=== PATIENT | female | born 1945 ===

== ENCOUNTER 2024-12-27 05:51 | Inpatient (IN) | payer MEDICARE, OTHER, SELFPAY ==
--- NOTE | 2024-12-13 13:28 | CM ---
Addendum entered by Cassidy Zhang RN 12/17/24 10:33:
CM received call from patient to confirm that she will have home PT through the weekend after her surgery. CM confirmed that patient will have PT visits from [facility] through the weekend.
CM updated [facility] Admission RN with patient's questions. CM will remain available as needed.
Addendum entered by Cassidy Zhang RN 12/13/24 13:33:
Home Visiting PT
Ericka Marquis
[phone]
Original Note:
CM reviewed medical records. CM spoke with patient via live telephone. CM confirmed demographics. Patient lives alone. She endorses that she has no family in the area. She stated that her friend would be helping with transportation and she will
have that friend and other friend stay with her after surgery. Patient has a cane and walker.
Patient would be agreeable to [facility]. She plans to not go to outpatient PT, but hire a private PT to visit in the home after [facility] is off service. Patient stated she will unable to drive.
Patient is active with her PCP. Patient will use [facility] on [address]
CM updated Orth PA with discharge plan
[2024-12-14 14:13] VITALS: BMI 21.3
[2024-12-14 14:35] LABS: Hematocrit 38.2 % (37.0-47.0); Hemoglobin 13.1 g/dL (12.0-16.0); Mean Corp Hgb Conc. 34.3 g/dL (33.0-37.0); Mean Corpuscular Volume 90.3 fL (81.0-99.0); Mean Platelet Volume 10.2 fL (7.4-10.4); Platelet Count 353 10^3/uL (130-400); Red Blood Cell Count 4.23 10^6/uL (4.20-5.40); Red Cell Dist. Width 12.7 % (11.5-14.5); White Blood Cell Count 11.9 10^3/uL (4.8-10.8)
[2024-12-14 14:59] LABS: ALT (SGPT) 15 U/L (0-35); AST (SGOT) 22 U/L (14-36); Alkaline Phosphatase 60 U/L (38-126); Blood Urea Nitrogen 23 mg/dl (7-17); Calcium 9.5 mg/dl (8.4-10.2); Carbon Dioxide 26 mmol/L (22-30); Chloride 101 mmol/L (98-107); Estimated Creatinine Clearance 52 ml/min; Glucose 118 mg/dl (70-99); Potassium 4.5 mmol/L (3.5-5.1); Sodium 135 mmol/L (135-145); Total Bilirubin 0.7 mg/dl (0.2-1.3); Total Protein 7.3 g/dl (6.3-8.2); eGFR > 60.00
[2024-12-14 17:29] VITALS: BMI 21.3
[2024-12-15 10:12] LABS: Glycohemoglobin (HgbA1c) 6.5 % (4.0-5.6)
--- NOTE | 2024-12-17 10:56 | VNURNOTE ---
Chart reviewed. Rec'ed info from surg coordinator that patient is requesting [facility] after surgery 12/27. Referral placed in [facility]. Will continue to monitor hospitalization and final DC dispo plans post-op. Will meet with pt after surgery.
[2024-12-27] VITALS (15 sets, daily range): BP systolic 117–175; BP diastolic 45–82; PULSE 99
[2024-12-27 07:16] LABS: Glucose - Point of Care 119 mg/dl (70-99)
[2024-12-27] MEDS: MOBIC 15 MG PO (07:16)
[2024-12-27] MEDS: TYLENOL 650 MG PO ×4 (07:16→19:12)
[2024-12-27] MEDS: NORMOSOL-R/PLASMALYTE-A 1000 IV ×2 (07:16→16:45)
--- NOTE | 2024-12-27 08:30 | W.PN.UPDATE ---
Update Note
Progress Note Update
L knee OA s/p L TKA w/ Dr Cardozo 12/27/24
DVT prophylaxis - ASA, b/l venous foot pumps
HTN - + parameters - monitor BP
NIDDM, A1c 6.5 - monitor BS
- Resume Metformin
- Add SSI AC, low dose Lantus to accomodate for potential BS elevations d/t surgical stress, IV steroids in OR
- Would benefit from Cefadroxil upon d/c
GERD - continue PPI therapy
Chronic constipation - continue home Miralax w/ bowel regimen of Colace and Senna
- Adequate hydration, the minimization of opioids, and early mobility as tolerated were all discussed alyssa-op
Left hip fracture, status post left hip hemiarthroplasty 2021
Colon polyps
Diverticulosis
Fatty liver disease
Vertigo
Scoliosis
Thyroid nodules
Overactive bladder
Melanoma in situ, status post excision x2
Osteoporosis
Mild leukocytosis, asymptomatic
Pt will need home PT/VN
[2024-12-27 10:08] LABS: Glucose - Point of Care 123 mg/dl (70-99)
[2024-12-27] MEDS: NOVOLOG FLEXPEN-MODERATE RESISTANCE SC (12:30)
[2024-12-27] MEDS: PROTONIX 20 MG PO ×2 (12:36→19:12)
[2024-12-27] MEDS: MIRALAX 17 GRAMS PO (12:36)
[2024-12-27] MEDS: GLUCOPHAGE 500 MG PO (12:36)
[2024-12-27] MEDS: ROXICODONE 5 MG PO ×3 (12:40→20:58)
--- NOTE | 2024-12-27 12:53 | W.DS.TRANS ---
DC Summary - Sample Box Maker
-
Discharge Instructions:
Sleep Apnea Risk Low
Discharge Diagnosis/Procedures L knee OA s/p L TKA w/ Dr Cardozo 12/27/24
Diet Diabetic, Carb Controlled
Additional Diets Adequate hydration, minimize opioids, and wear
TEDs stockings to prevent low blood pressure/
dizziness.
Activity As tolerated,With Walker
Driving Restrictions Not until seen by your Dr
Bathing Restrictions OK to Shower
Other Services PT,VN
Wound Care Dressing to be removed 1 week post-surgery.
[place] to be removed at 2 week follow-up with
surgeon's office.
Instructions:
Stand-Alone Forms: Total Hip/Knee Replacement D/C
Changes to Home Medications: Yes
Discharge Medications:
DC Medications w/original date entered in [employer]
L.acid,brev,bulg,casei,parac,plan,saliv-B.anim 20 billion cell capsule (Probiotic-10) 1 cap PO DAILY 12/13/24
calcium 600 mg (as carbonate)-vit D3 20 mcg (800 unit) chewable tablet (Caltrate plus D) 1 tab PO BID 12/13/24
mecobalamin (vitamin B12) 1,000 mcg chewable tablet (B12 Active) 1,000 mcg PO DAILY 12/13/24
metformin 500 mg tablet 500 mg PO DAILY 12/13/24
minoxidil 5 % topical foam (Rogaine) 1 ea topical QPM 12/13/24
omeprazole 20 mg tablet,delayed release 20 mg PO BID 12/13/24
polyethylene glycol 3350 17 gram oral powder packet (Miralax) 17 g PO DAILY 12/13/24
mupirocin 2 % topical ointment 1 applic intranasal BID #1 tube 12/14/24
doxycycline monohydrate 100 mg capsule 100 mg PO BID #14 caps 12/26/24
gabapentin 300 mg capsule 300 mg PO HS neuropathic pain/sleep #10 caps 12/26/24
meloxicam 15 mg tablet 15 mg PO DAILY Anti-inflammatory #14 tabs 12/26/24
ondansetron HCl 4 mg tablet 4 mg PO Q6H PRN nausea and vomiting #30 tabs 12/26/24
oxycodone 5 mg tablet 5 - 10 mg (1 - 2 x 5 mg) PO Q6H PRN moderate-severe pain #30 tabs 12/26/24
acetaminophen 500 mg tablet (Tylenol Extra Strength) 1,000 mg (2 x 500 mg) PO Q6H #60 tabs 12/27/24
amlodipine 5 mg tablet 7.5 mg (1.5 x 5 mg) PO DAILY #1 tab 12/27/24
aspirin 325 mg tablet 325 mg PO DAILY #30 tabs 12/27/24
docusate sodium 100 mg capsule 100 mg PO BID #30 caps 12/27/24
sennosides 8.6 mg tablet (Magrret-aguilar) 17.2 mg (2 x 8.6 mg) PO BID #30 tabs 12/27/24
spironolactone 25 mg tablet 25 mg PO DAILY #1 tab 12/27/24
Home Medication Changes
doxycycline monohydrate 100 mg capsule 100 mg PO BID #14 caps 12/26/24
gabapentin 300 mg capsule 300 mg PO HS neuropathic pain/sleep #10 caps 12/26/24
meloxicam 15 mg tablet 15 mg PO DAILY Anti-inflammatory #14 tabs 12/26/24
ondansetron HCl 4 mg tablet 4 mg PO Q6H PRN nausea and vomiting #30 tabs 12/26/24
oxycodone 5 mg tablet 5 - 10 mg (1 - 2 x 5 mg) PO Q6H PRN moderate-severe pain #30 tabs 12/26/24
acetaminophen 500 mg tablet (Tylenol Extra Strength) 1,000 mg (2 x 500 mg) PO Q6H #60 tabs 12/27/24
aspirin 325 mg tablet 325 mg PO DAILY #30 tabs 12/27/24
docusate sodium 100 mg capsule 100 mg PO BID #30 caps 12/27/24
sennosides 8.6 mg tablet (Margret-aguilar) 17.2 mg (2 x 8.6 mg) PO BID #30 tabs 12/27/24
Pending Results: No
[2024-12-27] MEDS: VITAMIN B-12 1000 MCG PO (13:28)
--- NOTE | 2024-12-27 15:05 | W.PN.UPDATE ---
Update Note
Progress Note Update
Patient seen and examined. VSS. OOB and in a chair. Pulm: nonlabored. CV: regular. Abd: benign. Ext: Dressing CDI. NVI distally. Calf soft. Postop xrays as expected. ASA for DVT prophylaxis. Plan for discharge home tomorrow.
--- NOTE | 2024-12-27 15:44 | VNURNOTE ---
Home Health Liaison met with patient at bedside to discuss [facility] nurse/therapy, visits, schedule and homebound status. Patient is agreeable and understands that visits at home will be 2-3 x per week to assess and teach medical management. Patient is
aware that [facility] will contact them for start of care in 1-2 days after discharge from .
[facility] referral accepted in [facility].
[2024-12-27 17:07] LABS: Glucose - Point of Care 150 mg/dl (70-99)
[2024-12-27] MEDS: NOVOLOG FLEXPEN-MODERATE RESISTANCE 1 UNITS SC (17:08)
[2024-12-27] MEDS: ASPIRIN 325 MG PO (17:08)
[2024-12-27] MEDS: ANCEF 5 IV (17:50)
[2024-12-27] MEDS: COLACE 100 MG PO (19:12)
[2024-12-27] MEDS: BACTROBAN 2% OINTMENT 1 APPLIC NASAL (19:12)
[2024-12-27] MEDS: SENOKOT 17.2 MG PO (19:12)
[2024-12-27] MEDS: NEURONTIN 300 MG PO (20:57)
[2024-12-27] MEDS: LANTUS 0.05 UNITS SC (20:58)
[2024-12-27 21:09] LABS: Glucose - Point of Care 202 mg/dl (70-99)
[2024-12-28] MEDS: TYLENOL 650 MG PO ×3 (00:51→09:35)
[2024-12-28] MEDS: ROXICODONE 5 MG PO (00:58)
[2024-12-28] MEDS: ANCEF 5 IV (02:26)
[2024-12-28 03:00] VITALS: BP 119/60
[2024-12-28] MEDS: ROXICODONE 10 MG PO ×2 (05:38→09:38)
[2024-12-28 07:04] LABS: Glucose - Point of Care 124 mg/dl (70-99)
[2024-12-28 07:05] VITALS: BP 127/62
[2024-12-28] MEDS: NOVOLOG FLEXPEN-MODERATE RESISTANCE SC (07:37)
[2024-12-28] MEDS: PROTONIX 20 MG PO (07:39)
[2024-12-28] MEDS: VITAMIN B-12 1000 MCG PO (07:39)
[2024-12-28] MEDS: VISBIOME 1 CAP PO (07:40)
[2024-12-28] MEDS: GLUCOPHAGE 500 MG PO (07:40)
[2024-12-28] MEDS: SENOKOT 17.2 MG PO (07:40)
[2024-12-28] MEDS: COLACE 100 MG PO (07:40)
[2024-12-28] MEDS: MOBIC 15 MG PO (07:40)
[2024-12-28] MEDS: MIRALAX 17 GRAMS PO (07:40)
[2024-12-28] MEDS: BACTROBAN 2% OINTMENT 1 APPLIC NASAL (07:41)
[2024-12-28] MEDS: ASPIRIN 325 MG PO (07:47)
--- NOTE | 2024-12-28 07:48 | W.PN.ORTHO ---
Today's Communication / Plan
-
Plan for discharge home today with outpatient PT
Assessment
.
Dressing:
Clean, dry and intact.
Assessment:
Doing well s/p LTKR
Plan
.
Surgery / Date: 12/27/2024 DB
DVT Prophylaxis: Aspirin
Activity:
Out of bed.
PT/OT
Discharge Plan: Home w/ VN
Subjective
.
.:
Patient resting comfortably. OOB and eating breakfast
Vital Signs and Labs
.
Vital Signs and Labs:
Lab Results
12/14/24 13:21
12/14/24 13:21
Temp Pulse Resp BP Pulse Ox
97.6 F 89 16 119/60 96
12/28/24 03:00 12/28/24 03:00 12/28/24 03:00 12/28/24 03:00 12/28/24 03:00
Non-invasive Hgb result: 12.7
Physical Exam
-
Pulm: nonlabored
CV: regular
Abd: benign
Ext: LLE: calf soft. Unable to fully extend. NVI distally
--- NOTE | 2024-12-28 08:59 | CM ---
Cm reviewed medical records. Patient is enthusistic to be discharged. Plan for discharge to home with [facility].
PLAN: home with [facility].
[2024-12-28 09:26] VITALS: BP 127/62; PULSE 75; O2SAT 96
--- NOTE | 2024-12-28 10:00 | W.PN.ORTHO ---
Today's Communication / Plan
-
d/c
Assessment
.
Distal Motor Intact: Yes
Dressing:
Clean, dry and intact.
Assessment:
NIDDM, A1c 6.5 - monitor BS
- Resume Metformin
- Add SSI AC, low dose Lantus to accommodate for potential BS elevations d/t surgical stress, IV steroids in OR
- Would benefit from Cefadroxil upon d/c
Chronic constipation - continue home Miralax w/ bowel regimen of Colace and Senna
- Adequate hydration, the minimization of opioids, and early mobility as tolerated were all discussed alyssa-op
-bowel regimen stressed to avoid p/o obstruction/ileus
Plan
.
Surgery / Date: L TKA 12/27/24 Dr. Cardozo
DVT Prophylaxis: Aspirin
Activity:
Out of bed.
PT/OT
Discharge Plan: Home w/ VN
Subjective
.
.:
Patient resting comfortably.
Vital Signs and Labs
.
Vital Signs and Labs:
Lab Results
12/14/24 13:21
12/14/24 13:21
Temp Pulse Resp BP Pulse Ox
98.1 F 75 16 127/62 96
12/28/24 07:05 12/28/24 07:39 12/28/24 07:05 12/28/24 07:39 12/28/24 07:05
Non-invasive Hgb result: 12.7
Physical Exam
-
HEENT: No pallor, cyanosis, or jaundice. Throat clear.
NECK: Supple. No JVD.
RESPIRATORY: Lungs clear to auscultation.
CVS: S1, S2 normal. RRR.� No murmur, rub or gallop.
ABDOMEN: Soft, non-tender. No distension. BS+/normal.
EXTREMITIES: strength equal, no calf pain with palpation
AUTOMOBILE BUMPER STRAIGHTENER: AOx3. No focal deficits. parking analyst grossly intact
[2024-12-28 10:31] VITALS: BP 120/61; PULSE 76
[2024-12-28 10:57] VITALS: BP 133/65
== END 2024-12-28 11:48 | disposition home health service (06) | DRG 470 ==
LOC: 2 SOUTH 05:51
PROVIDERS: ADMITTING PHYSICIAN Orthopaedic Surgery; FAMILY PHYSICIAN Internal Medicine; REFERRING PHYSICIAN Specialist
PROC: 0SRD0J9 Replacement of Left Knee Joint with Synthetic Substitute, Cemented, Open Approach (ICD-10-PCS; 2024-12-27)
DX: M17.12 Unilateral primary osteoarthritis, left knee (principal); I10 Essential (primary) hypertension; E11.9 Type 2 diabetes mellitus without complications; K21.9 Gastro-esophageal reflux disease without esophagitis; K76.0 Fatty (change of) liver, not elsewhere classified; K59.09 Other constipation; M41.9 Scoliosis, unspecified; E04.2 Nontoxic multinodular goiter; N32.81 Overactive bladder; M81.0 Age-related osteoporosis without current pathological fracture; D72.829 Elevated white blood cell count, unspecified; Z96.642 Presence of left artificial hip joint; Z86.0100 Personal history of colon polyps, unspecified; Z87.19 Personal history of other diseases of the digestive system; Z86.006 Personal history of melanoma in-situ; Z79.82 Long term (current) use of aspirin; Z79.84 Long term (current) use of oral hypoglycemic drugs; Z98.41 Cataract extraction status, right eye; Z98.42 Cataract extraction status, left eye; Z59.82 Transportation insecurity
CPT/HCPCS: 36415; 73560; 80053; 82962; 83036; 85027; 87070; 97110; 97116; 97162; 97166; 97530; 97535